=== PATIENT | male | born 1965 | race Two or more races ===

== ENCOUNTER 2020-07-06 15:36 | Emergency (ER) | payer MEDICAID ==
[~2020-07-06] VITALS: Ht 185.4 cm; Wt 112.7 kg
[~2020-07-06 15:36] MED LIST: AMLO10TA80 PO; CLON0.3T PO; CLOP75TA15 PO; HYDR100T26 PO; LIP40 PO
[2020-07-06 15:50] VITALS: BP 155/95
== END 2020-07-06 17:54 | disposition home or self-care (01) ==
LOC: ER 15:36
DX: I16.0 Hypertensive urgency (principal)
CPT/HCPCS: 99281

== ENCOUNTER 2022-06-17 20:17 | Emergency (ER) | payer MEDICAID, OTHER ==
[~2022-06-17] VITALS: Ht 175.3 cm; Wt 120.7 kg
[2022-06-17] MEDS ORDERED: AMLODIPINE 10MG TABLET PO ONE (21:15)
[2022-06-17] MEDS ORDERED: CLONIDINE 0.3MG TABLET PO ONE (21:15)
[2022-06-17] MEDS ORDERED: HYDROCODONE/ACETAMINOPHEN 10/325MG TABLET PO NR (21:45)
[2022-06-17] MEDS ORDERED: HYDRALAZINE 20MG/ML VIAL IV ONE (22:45)
[2022-06-17] MEDS ORDERED: TOPUD MT (23:43)
[2022-06-18] VITALS: BP 178/85
== END 2022-06-18 00:01 ==
LOC: ER 20:17
DX: S39.012A Strain of muscle, fascia and tendon of lower back, initial encounter (principal); I10 Essential (primary) hypertension; R51.9 Headache, unspecified; Z86.73 Personal history of transient ischemic attack (TIA), and cerebral infarction without residual deficits; W18.30XA Fall on same level, unspecified, initial encounter; Y93.89 Activity, other specified; Y92.89 Other specified places as the place of occurrence of the external cause; Y99.8 Other external cause status
CPT/HCPCS: 70450; 72131; 73610; 93005; 96374; 99285; J0360; Z7610